=== PATIENT | female | born 1950 | race Caucasian/White ===

== ENCOUNTER 2016-04-09 10:53 | Outpatient (CLI) | payer MEDICARE | END 2016-04-09 10:54 | disposition home or self-care (01) | LOC: MADLAB 10:53 | PROVIDERS: ATTEND Urology | DX: N13.5 Crossing vessel and stricture of ureter without hydronephrosis (principal); N39.0 Urinary tract infection, site not specified | CPT/HCPCS: 36415; 87086 ==

== ENCOUNTER 2016-04-15 11:04 | Outpatient (CLI) | payer MEDICARE ==
--- NOTE | 2016-04-15 12:46 | RAD ---
THREE VIEWS OF THE SACRUM AND COCCYX: INDICATION: Fall with pain. FINDINGS: There is a minimally displaced comminuted fracture involving the coccyx. No additional fracture is evident. SI joints are normal-appearing. There is partial visualization of the distal left uretera l calculus. IMPRESSION: Minimally displaced mildly comminuted coccygeal fracture. POS: [facility]
--- NOTE | 2016-04-15 12:47 | RAD ---
TWO VIEWS OF THE LUMBAR SPINE: INDICATION: Fall with back pain. FINDINGS: There is a left ureteral stent in place. Cholecystectomy clips are seen within the right upper quad rant. No acute fracture or subluxation is evident. There is mild spondylosis of the lumbar spine. IMPRESSION: No acute osseous abnormality of the lumbar spine. POS: [facility]
== END 2016-04-15 11:05 | disposition home or self-care (01) ==
LOC: MADRAD 11:04
PROVIDERS: ATTEND Family Medicine
DX: M54.9 Dorsalgia, unspecified (principal)
CPT/HCPCS: 72100; 72220

== ENCOUNTER 2016-06-11 16:18 | Outpatient (CLI) | payer MEDICARE | END 2016-06-11 16:19 | disposition home or self-care (01) | LOC: MADLAB 16:18 | PROVIDERS: ATTEND Urology | DX: N39.0 Urinary tract infection, site not specified (principal) | CPT/HCPCS: 87086 ==

== ENCOUNTER 2016-06-23 12:40 | Outpatient (CLI) | payer MEDICARE | END 2016-06-23 12:41 | disposition home or self-care (01) | LOC: MADLAB 12:40 | PROVIDERS: ATTEND Urology | DX: N39.0 Urinary tract infection, site not specified (principal) | CPT/HCPCS: 36415; 87086 ==

== ENCOUNTER 2016-08-11 13:09 | Outpatient (CLI) | payer MEDICARE | END 2016-08-11 13:10 | disposition home or self-care (01) | LOC: MADLAB 13:09 | PROVIDERS: ATTEND Urology | DX: R30.0 Dysuria (principal) | CPT/HCPCS: 87086 ==

== ENCOUNTER 2016-10-07 14:32 | Outpatient (CLI) | payer MEDICARE | END 2016-10-07 14:33 | disposition home or self-care (01) | LOC: MADLAB 14:32 | PROVIDERS: ATTEND Urology | DX: N39.0 Urinary tract infection, site not specified (principal) | CPT/HCPCS: 36415; 87077; 87086; 87186 ==

== ENCOUNTER 2016-11-08 13:45 | Outpatient (CLI) | payer MEDICARE | END 2016-11-08 13:46 | disposition home or self-care (01) | LOC: MADLAB 13:45 | PROVIDERS: ATTEND Urology | DX: R30.0 Dysuria (principal) | CPT/HCPCS: 87077; 87086; 87186 ==

== ENCOUNTER 2016-11-17 13:55 | Outpatient (CLI) | payer MEDICARE | END 2016-11-17 13:56 | disposition home or self-care (01) | LOC: MADLAB 13:55 | PROVIDERS: ATTEND Urology | DX: N39.0 Urinary tract infection, site not specified (principal) | CPT/HCPCS: 36415; 87086 ==

== ENCOUNTER 2017-04-05 16:37 | Emergency (ER) | payer MEDICARE ==
[~2017-04-05 16:37] MED LIST: Sodium Chloride 0.9% 1,000 ML BAG ONE
[2017-04-05 17:19] LABS: Bacteria/HPF 4+ HPF (None Seen); Bilirubin Small (Negative); Blood, Urine Large (Negative); Clarity Cloudy (Clear); Glucose, Urine (Dipstick) Negative (Negative); Leukocyte Large (Negative); Nitrite Negative (Negative); Protein, Urine (Dipstick) 100 mg/dL (Neg-Trace); RBC/HPF GREATER THAN 50-TNTC HPF (0-3); Urobilinogen 0.2 mg/dL (0.2-1.0); pH, Urine 5.5 (5.0-9.0)
[2017-04-05 17:52] LABS: #Basophils 0.1 thou/uL (0.0-0.2); #Eosinphils 0.4 thou/uL (0.0-0.7); #Lymphocytes 2.9 thou/uL (1.20-3.40); #Monocytes 0.5 thou/uL (0.11-0.59); #Neutrophils 2.4 thou/uL (1.40-6.50); %Basophils 1.9 % (0.0-1.0); %Eosinophils 6.1 % (0.0-10.0); %Monocytes 7.7 % (0.0-10.0); %Neutrophils 38.4 % (42.0-75.0); Hemoglobin 12.9 g/dL (12.0-16.0); Mean Corpuscular HGB CONC 32.8 g/dL (32.0-36.0); Mean Corpuscular Hemoglobin 29.6 pg (27.0-31.0); Mean Corpuscular Volume 90.2 fl (81.0-99.0); Mean Platelet Volume 6.8 fL (7.4-10.4); Platelet Count 307 thou/uL (130-400); RBC Distribution Width 13.5 % (11.5-14.5); Red Blood Cell (RBC) Count 4.36 mill/uL (4.20-5.40); White Blood Cell (WBC) Count 6.3 thou/uL (4.8-10.8)
[2017-04-05] MEDS ORDERED: Morphine 4 MG/ML VIAL ONE (18:00)
[2017-04-05 18:06] LABS: ALT (SGPT) 18 U/L (8-55); AST (SGOT) 42 U/L (5-34); Albumin 3.1 g/dL (3.4-4.8); Alkaline Phosphatase 94 U/L (40-150); Anion Gap 19 mmol/L (10-20); BUN (Urea Nitrogen) 6 mg/dL (9.8-20.1); Bilirubin, Total 0.4 mg/dL (0.2-1.2); Calc. Creatinine Clearance 0 mL/min (70-130); Calcium 8.7 mg/dL (7.8-10.44); Carbon Dioxide 20 mmol/L (23-31); Chloride 100 mmol/L (98-107); Estimated GFR-MDRD 60; Globulin 3.8 g/dL (2.4-3.5); Glucose 70 mg/dL (80-115); Potassium 3.9 mmol/L (3.5-5.1); Protein, Total 6.9 g/dL (6.0-8.3); Sodium 135 mmol/L (136-145)
[2017-04-05] MEDS ORDERED: Levofloxacin 500 mg/D5W 100 ml Premix Bag ONE (18:12)
[2017-04-05] MEDS ORDERED: Ondansetron HCl/PF 4 MG/2 ML Vial ONE (18:12)
[2017-04-05] MEDS ORDERED: Lorazepam 2 MG/ML VIAL ONE (20:58)
== END 2017-04-05 21:05 | disposition short-term general hospital (02) ==
LOC: MADERS 16:37
DX: N39.0 Urinary tract infection, site not specified (principal); F17.210 Nicotine dependence, cigarettes, uncomplicated; Z85.841 Personal history of malignant neoplasm of brain; Z85.05 Personal history of malignant neoplasm of liver
CPT/HCPCS: 80053; 81003; 81015; 83605; 85025; 87040; 87086; 96361; 96365; 96375; J1956; J2060; J2270; J2405; J7050

== ENCOUNTER 2017-05-04 15:28 | Outpatient (CLI) | payer MEDICARE | END 2017-05-04 15:29 | disposition home or self-care (01) | LOC: MADLAB 15:28 | PROVIDERS: ATTEND Urology | DX: N39.0 Urinary tract infection, site not specified (principal) | CPT/HCPCS: 87086 ==

== ENCOUNTER 2017-08-30 11:55 | Outpatient (CLI) | payer MEDICARE ==
--- NOTE | 2017-08-30 14:01 | RAD ---
KUB: Date: 08-30-17 Comparison: None. History: Dysuria and bilateral flank pain. FINDINGS: There are bilateral double J stents present. Supine imaging limits assessment for free intraperitonea l air and small bowel obstruction. Clips in right upper quadrant suggest prior cholecystectomy. Bowel gas pattern appears nonobstructed. Calcifications in the pelvis suggest phleboliths. IMPRESSION: Bilateral double J ureteral stents are present. The bowel gas pattern appears nonobstructed. POS: [facility]
== END 2017-08-30 11:56 | disposition home or self-care (01) ==
LOC: MADLAB 11:55
PROVIDERS: ATTEND Urology
DX: N39.0 Urinary tract infection, site not specified (principal)
CPT/HCPCS: 74018; 87086

== ENCOUNTER 2018-01-28 13:30 | Emergency (ER) | payer MEDICARE ==
[2018-01-28] MEDS ORDERED: Morphine 4 MG/ML VIAL ONE ×2 (14:22→16:19)
[2018-01-28 14:32] LABS: PTT 43.9 SEC (22.9-36.1)
[2018-01-28 14:36] LABS: INR-International Normal Ratio 1.1; Prothrombin Time 13.8 SEC (12.0-14.7)
[2018-01-28] MEDS ORDERED: Ondansetron PF 4 MG/2 ML Vial ONE (14:38)
[2018-01-28 14:40] LABS: Bilirubin Negative (Negative); Blood, Urine Moderate (Negative); Clarity Cloudy (Clear); Glucose, Urine (Dipstick) Negative (Negative); Leukocyte Large (Negative); Nitrite Negative (Negative); Protein, Urine (Dipstick) 30 mg/dL (Neg-Trace); Specific Gravity, Urine 1.015 (1.005-1.030); Urobilinogen 0.2 mg/dL (0.2-1.0)
[2018-01-28 14:41] LABS: ALT (SGPT) 14 U/L (8-55); AST (SGOT) 14 U/L (5-34); Albumin 3.6 g/dL (3.4-4.8); Alkaline Phosphatase 125 U/L (40-150); Anion Gap 15 mmol/L (10-20); BUN (Urea Nitrogen) 18 mg/dL (9.8-20.1); Bilirubin, Total 0.4 mg/dL (0.2-1.2); Calc. Creatinine Clearance 0 mL/min (70-130); Calcium 8.9 mg/dL (7.8-10.44); Carbon Dioxide 24 mmol/L (23-31); Chloride 103 mmol/L (98-107); Estimated GFR-MDRD 46; Globulin 3.8 g/dL (2.4-3.5); Glucose 83 mg/dL (80-115); Potassium 4.5 mmol/L (3.5-5.1); Protein, Total 7.4 g/dL (6.0-8.3); Sodium 137 mmol/L (136-145)
[2018-01-28 14:43] LABS: CKMB 0.7 ng/mL (0-6.6); Troponin I Less than 0.010 ng/mL (< 0.028)
[2018-01-28 14:46] LABS: Bacteria/HPF 1+ HPF (None Seen); RBC/HPF 21-50 HPF (0-3); WBC/HPF 21-50 HPF (0-3)
[2018-01-28] MEDS ORDERED: Ketorolac Tromethamine 30 MG/ML VIAL ONE (16:19)
[2018-01-28] MEDS ORDERED: cefTRIAXone\\ROCEPHIN 1 GM VIAL ONE (16:19)
[2018-01-28] MEDS ORDERED: Azithromycin 500 MG VIAL ONE (16:19)
--- NOTE | 2018-01-28 17:15 | CT ---
CT ANGIOGRAM CHEST WITH 3D RENDERIN01/28/18 HISTORY: 67-year-old female with history of chest pain. There is parenchymal density in the right middle lobe, evidence for right middle lobe pneumonia. Ther e is some small right hilar lymph nodes. No convincing CT evidence for acute pulmonary embolism. Athe rosclerotic calcification and atherosclerotic plaques are noted including the arch of the aorta as we ll as the origin of the left subclavian artery and the descending aorta without significant stenosis. Small hiatal hernia. IMPRESSION: Evidence for right middle lobe pneumonia. No convincing CT evidence for acute pulmonary embolism. Mul tiple atherosclerotic calcific plaques. POS: [facility]
--- NOTE | 2018-01-28 18:00 | CT ---
ABDOMEN AND PELVIC CT SCAN WITH IV CONTRAST: 01/28/18 HISTORY: 67-year-old female with history of left flank pain, history of metastatic melanoma, bilateral uretera l stents. The visualized lung bases are clear. Small hiatal hernia. Status post cholecystectomy with some dilat ation of the common bile duct but no significant peripheral intrahepatic ductal dilatation. The pancr eas, spleen, adrenal glands are unremarkable. There are two focal areas of dilatation of the abdomina l aorta. One measuring approximately 2.2 cm with a focal narrowed abdominal aorta measuring approxima tely 0.9 cm followed by another focal area of aneurysmal dilatation up to 2.4 cm with prominent ather osclerotic calcific plaques of the aorta as well as iliac arteries. There is bilateral renal contrast excretion which is quite dense since this study followed the CT angiogram of the chest. No evidence for acute obstruction. IMPRESSION: Small hiatal hernia. Bilateral ureteral stents without evidence for obstruction. 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 No evid ence for other significant acute process in the abdomen or pelvis. POS: [facility]
== END 2018-01-28 18:00 | disposition home or self-care (01) ==
LOC: MADERS 13:30
DX: J18.9 Pneumonia, unspecified organism (principal); M25.552 Pain in left hip; F17.210 Nicotine dependence, cigarettes, uncomplicated; Z79.899 Other long term (current) drug therapy
CPT/HCPCS: 71275; 74177; 80053; 81003; 81015; 82553; 84484; 85610; 85730; 93005; 96365; 96375; 96376; J0456; J0696; J1885; J2270; J2405

== ENCOUNTER 2018-04-20 08:20 | Emergency (ER) | payer MEDICARE ==
[2018-04-20] MEDS ORDERED: HYDROcodone/Acetaminophen 10/325 mg Tablet ONE (09:49)
[2018-04-20] MEDS ORDERED: Ketorolac Tromethamine 30 MG/ML VIAL ONE (09:49)
--- NOTE | 2018-04-20 09:50 | RAD ---
RIGHT RIBS GREATER/EQUAL TO TWO VIEW PA CHEST RADIOGRAPH: History: Injury. Bruise. Comparison: CT chest 01/2018. FINDINGS: There has been interval resolution of the right middle lobe pneumonia. Lungs are without confluent ai rspace consolidation, pneumothorax or effusion. No acute displaced rib fracture. IMPRESSION: No acute displaced rib fracture. POS: [facility]
== END 2018-04-20 10:22 | disposition home or self-care (01) ==
LOC: MADERS 08:20
DX: S20.211A Contusion of right front wall of thorax, initial encounter (principal); X58.XXXA Exposure to other specified factors, initial encounter
CPT/HCPCS: 96372; J1885

== ENCOUNTER 2018-04-23 10:10 | Emergency (ER) | payer MEDICARE ==
[2018-04-23] MEDS ORDERED: Ketorolac Tromethamine 60 MG/2 ML VIAL ONE (10:55)
--- NOTE | 2018-04-23 12:32 | CT ---
NONCONTRAST CT THORAX: Date: 08/21/18 HISTORY: Right-sided rib injury. COMPARISON: CTA chest dated 01/28/18. FINDINGS: Lack of intravenous contrast limits sensitivity for evaluation of the mediastinal structures and vasc ulature. Vascular calcifications are seen in the coronary arteries, as well as involving the thoracic aorta. N o definite enlarged lymph nodes are seen on this nonenhanced CT scan of the chest. The previously noted area of consolidation in the medial aspect of the right upper lobe has resolved with mild persistent linear densities in this region which may be related to residual scarring within the medial right upper lobe. There is a tiny nodular density measuring approximately 4.0 mm within the right middle lobe, too smal l to accurately assess. There is also a small, approximately 4.0 mm, pulmonary nodule posterior aspec t right lower lobe. This was not definitely visualized on the prior study, but due to motion, this wa s not well visualized. This is also too small to accurately assess. There is a stable subpleural nodu lar density at the left lung base that measures approximately 3.0 mm. There is also an adjacent sligh tly smaller subpleural nodular density as well. No additional discrete pulmonary nodular mass is appr eciated within the lungs bilaterally. No pleural effusion or consolidation is present. Post cholecystectomy changes are present within the upper abdomen. There is a small hiatal hernia. There are fractures involving the lateral right 7th and 8th ribs which are not significantly displace d. No definite additional rib fracture is seen. There is mild deformity of the left anterior abdominal wall with absence of a portion of the adipose layer likely related to prior postoperative change. IMPRESSION: 1. Nondisplaced right lateral 7th and 8th rib fractures. There is no evidence of a pneumothorax or p leural effusion. 2. A few tiny, 4.0 mm, pulmonary nodules bilaterally, which are difficult to accurately assess due t o very small size. POS: [facility]
== END 2018-04-23 11:45 | disposition home or self-care (01) ==
LOC: MADERS 10:10
DX: S22.41XA Multiple fractures of ribs, right side, initial encounter for closed fracture (principal); Z71.6 Tobacco abuse counseling; F17.210 Nicotine dependence, cigarettes, uncomplicated; Z79.899 Other long term (current) drug therapy; X58.XXXA Exposure to other specified factors, initial encounter
CPT/HCPCS: 71250; 96372; 99406; J1885

== ENCOUNTER 2018-06-14 12:20 | Emergency (ER) | payer MEDICARE ==
[2018-06-14 13:09] LABS: #Basophils 0.1 thou/uL (0.0-0.2); #Eosinphils 0.2 thou/uL (0.0-0.7); #Lymphocytes 1.5 thou/uL (1.20-3.40); #Monocytes 0.5 thou/uL (0.11-0.59); %Basophils 0.8 % (0.0-1.0); %Eosinophils 1.9 % (0.0-10.0); %Lymphocytes 14.5 % (21.0-51.0); %Monocytes 4.9 % (0.0-10.0); %Neutrophils 77.9 % (42.0-75.0); Hemoglobin 12.9 g/dL (12.0-16.0); Mean Corpuscular HGB CONC 31.6 g/dL (32.0-36.0); Mean Corpuscular Hemoglobin 29.1 pg (27.0-31.0); Mean Corpuscular Volume 92.2 fL (78.0-98.0); Mean Platelet Volume 5.3 fL (7.4-10.4); Platelet Count 322 thou/uL (130-400); RBC Distribution Width 14.9 % (11.5-14.5); Red Blood Cell (RBC) Count 4.44 mill/uL (4.20-5.40); White Blood Cell (WBC) Count 10.2 thou/uL (4.8-10.8)
[2018-06-14 13:14] LABS: Bilirubin Negative (Negative); Blood, Urine Moderate (Negative); Clarity Clear (Clear); Glucose, Urine (Dipstick) Negative (Negative); Leukocyte Large (Negative); Nitrite Negative (Negative); Protein, Urine (Dipstick) Negative (Neg-Trace); Urobilinogen 0.2 mg/dL (0.2-1.0)
[2018-06-14 13:23] LABS: Bacteria/HPF Rare-Few HPF (None Seen)
[2018-06-14 13:27] LABS: THC/Cannabinoid Screen Not Detected (NotDetected)
[2018-06-14 13:28] LABS: Amphetamine Not Detected (NotDetected); Barbiturates Screen Not Detected (NotDetected); Benzodiazepine Screen Not Detected (NotDetected); Cocaine Metabolite Screen Not Detected (NotDetected); Medtox Control Line Valid? VALID (VALID); Methadone Not Detected (NotDetected); Methamphetamine Not Detected (NotDetected); Opiate Screen Detected (NotDetected); Oxycodone Screen Not Detected (NotDetected); Phencyclidine (PCP) Not Detected (NotDetected); Tricyclic Screen Detected (NotDetected)
[2018-06-14 13:30] LABS: ALT (SGPT) 10 U/L (8-55); AST (SGOT) 15 U/L (5-34); Acetaminophen Less than 6.0 mcg/mL (10.0-30.0); Albumin 3.6 g/dL (3.4-4.8); Alcohol Less than 10 mg/dL (Less than 10); Alkaline Phosphatase 126 U/L (40-150); Anion Gap 12 mmol/L (10-20); BUN (Urea Nitrogen) 23 mg/dL (9.8-20.1); Bilirubin, Total Less than 0.2 mg/dL (0.2-1.2); Calc. Creatinine Clearance 0 mL/min (70-130); Calcium 8.5 mg/dL (7.8-10.44); Carbon Dioxide 25 mmol/L (23-31); Chloride 105 mmol/L (98-107); Estimated GFR-MDRD 53; Globulin 3.2 g/dL (2.4-3.5); Glucose 86 mg/dL (80-115); Potassium 4.6 mmol/L (3.5-5.1); Protein, Total 6.8 g/dL (6.0-8.3); Salicylate Less than 8.0 mg/dL (15.0-30.0); Sodium 137 mmol/L (136-145)
== END 2018-06-14 13:37 | disposition left against medical advice (07) ==
LOC: MADERS 12:20
DX: Z53.21 Procedure and treatment not carried out due to patient leaving prior to being seen by health care provider (principal); F17.210 Nicotine dependence, cigarettes, uncomplicated
CPT/HCPCS: 36415; 80053; 80306; 80307; 81003; 81015; 85025; 87086; 94760

== ENCOUNTER 2018-08-23 19:50 | Emergency (ER) | payer MEDICARE ==
[2018-08-23] MEDS ORDERED: Fentanyl 100 MCG/2 ML VIAL ONE (20:19)
[2018-08-23] MEDS ORDERED: Sodium Chloride 0.9% 1,000 ML ONE (20:19)
[2018-08-23] MEDS ORDERED: Acetaminophen 500 MG TAB ONE (20:19)
[2018-08-23 20:26] LABS: Bilirubin Negative (Negative); Blood, Urine Large (Negative); Glucose, Urine (Dipstick) Negative (Negative); Leukocyte Moderate (Negative); Nitrite Negative (Negative); Protein, Urine (Dipstick) 100 mg/dL (Neg-Trace); Specific Gravity, Urine 1.015 (1.005-1.030); Urobilinogen 0.2 mg/dL (0.2-1.0); pH, Urine 5.5 (5.0-9.0)
[2018-08-23 20:27] LABS: Clarity Cloudy (Clear)
[2018-08-23 20:28] LABS: Bacteria/HPF 1+ HPF (None Seen); RBC/HPF GREATER THAN 50-TNTC HPF (0-3); Squamous Epithelial 0-3 HPF (0-3)
[2018-08-24 09:50] LABS: Hemoglobin 12.6 g/dL (12.0-16.0); Mean Corpuscular HGB CONC 32.8 g/dL (32.0-36.0); Mean Corpuscular Hemoglobin 29.2 pg (27.0-31.0); Mean Platelet Volume 5.2 fL (7.4-10.4); Platelet Count 279 thou/uL (130-400); RBC Distribution Width 14.6 % (11.5-14.5); Red Blood Cell (RBC) Count 4.32 mill/uL (4.20-5.40); White Blood Cell (WBC) Count 12.3 thou/uL (4.8-10.8)
[2018-08-24 09:51] LABS: #Basophils 0.1 thou/uL (0.0-0.2); #Eosinphils 0.3 thou/uL (0.0-0.7); #Lymphocytes 2.3 thou/uL (1.20-3.40); #Monocytes 0.9 thou/uL (0.11-0.59); #Neutrophils 8.7 thou/uL (1.40-6.50); %Basophils 0.9 % (0.0-1.0); %Eosinophils 2.5 % (0.0-10.0); %Lymphocytes 18.5 % (21.0-51.0); %Monocytes 7.1 % (0.0-10.0); %Neutrophils 71.1 % (42.0-75.0)
[2018-08-24 09:57] LABS: ALT (SGPT) 12 U/L (8-55); AST (SGOT) 18 U/L (5-34); Albumin 3.4 g/dL (3.4-4.8); Alkaline Phosphatase 95 U/L (40-150); Anion Gap 16 mmol/L (10-20); BUN (Urea Nitrogen) 24 mg/dL (9.8-20.1); Bilirubin, Total 0.4 mg/dL (0.2-1.2); Calc. Creatinine Clearance 0 mL/min (70-130); Calcium 8.8 mg/dL (7.8-10.44); Carbon Dioxide 25 mmol/L (23-31); Chloride 102 mmol/L (98-107); Estimated GFR-MDRD 37; Globulin 3.7 g/dL (2.4-3.5); Glucose 83 mg/dL (80-115); Potassium 4.2 mmol/L (3.5-5.1); Protein, Total 7.1 g/dL (5.8-8.1); Sodium 139 mmol/L (136-145)
== END 2018-08-23 23:15 | disposition home or self-care (01) ==
LOC: MADERS 19:50
DX: N10 Acute pyelonephritis (principal); F17.210 Nicotine dependence, cigarettes, uncomplicated
CPT/HCPCS: 80053; 81003; 81015; 83605; 84484; 85025; 87040; 87086; J1956; J3010; J7050

== ENCOUNTER 2018-10-22 20:45 | Emergency (ER) | payer MEDICARE ==
[2018-10-22 21:09] LABS: Bilirubin Negative (Negative); Blood, Urine Moderate (Negative); Clarity Cloudy (Clear); Glucose, Urine (Dipstick) Negative (Negative); Leukocyte Large (Negative); Nitrite Negative (Negative); Protein, Urine (Dipstick) 30 mg/dL (Neg-Trace); Urobilinogen 0.2 mg/dL (Less than 2)
[2018-10-22 21:13] LABS: RBC/HPF 21-50 HPF (0-3); WBC/HPF Greater Than 50 HPF (0-3)
[2018-10-22] MEDS ORDERED: cefTRIAXone\\ROCEPHIN 1 GM VIAL ONE (21:13)
[2018-10-22] MEDS ORDERED: Lidocaine 2% 20 ml MDV ONE (21:13)
[2018-10-22 21:14] LABS: Bacteria/HPF 2+ HPF (None Seen)
[2018-10-22] MEDS ORDERED: Acetaminophen/Codeine 30-300mg Tablet ONE (21:17)
== END 2018-10-22 21:38 | disposition home or self-care (01) ==
LOC: MADERS 20:45
DX: N39.0 Urinary tract infection, site not specified (principal); F17.210 Nicotine dependence, cigarettes, uncomplicated
CPT/HCPCS: 81003; 81015; 87086; 96372; 99283; J0696; J2001

== ENCOUNTER 2019-01-08 10:10 | Emergency (ER) | payer MEDICARE ==
--- NOTE | 2019-01-08 11:14 | RAD ---
LEFT ANKLE 3 VIEWS: Date: 01/08/19 HISTORY: Fall. FINDINGS: There is soft tissue swelling laterally and on the dorsum of the foot. Tiny bony density at the nidhi avicular joint could indicate a subtle avulsive injury. In addition on the AP projection, small bony density on the lateral side of the talus which would suggest injury to the distal attachment of the a nterior talofibular ligament. IMPRESSION: Findings suspicious for a small avulsion fracture of the dorsal capsule near the talonavicular joint level and probable avulsive injury of the distal attachment of the ATFL at the level of the talus. POS: [facility]
--- NOTE | 2019-01-08 11:15 | RAD ---
LEFT FOOT 3 VIEWS: Date: 01/08/19 HISTORY: Fall earlier. FINDINGS: Soft tissue swelling on the dorsum of the foot is noted. Once again, a faint bony density is seen shasta ng the talonavicular joint, which would indicate possibly a dorsal capsular injury. A small bony dens ity near the calcaneal cuboid joint is probably related to a small ossicle related to the peroneus te ndon. IMPRESSION: Soft tissue swelling mainly on the dorsum of the foot. Please refer to the ankle report concerning de scription of these findings. POS: [facility]
[2019-01-08] MEDS ORDERED: Ibuprofen 600 MG TAB ONE (11:21)
== END 2019-01-08 11:45 | disposition home or self-care (01) ==
LOC: MADERS 10:10
DX: S82.892A Other fracture of left lower leg, initial encounter for closed fracture (principal); F17.210 Nicotine dependence, cigarettes, uncomplicated; W18.30XA Fall on same level, unspecified, initial encounter

== ENCOUNTER 2019-01-15 12:06 | Emergency (ER) | payer MEDICARE ==
[2019-01-15] MEDS ORDERED: Morphine 4 MG/ML VIAL ONE ×2 (12:35→14:27)
[2019-01-15] MEDS ORDERED: Aspirin Chewable 81 MG TAB ONE (12:35)
--- NOTE | 2019-01-15 12:52 | RAD ---
CHEST PA AND LATERAL: HISTORY: Chest pain . COMPARISON: 04/28/2015. FINDINGS: Heart: Normal cardiac silhouette. Aorta: Atherosclerosis. Pulmonary vessels: Prominent. Costophrenic angles: Costophrenic angles are clear. Lungs: Hyperinflation. There do appear to be chronic changes. Superimposed interstitial edema and/or infiltrate cannot be excluded. Pneumothorax: No pneumothorax. Osseous structures: No osseous abnormalities. IMPRESSION: 1. Atherosclerosis. 2. Hyperinflation with what are probably chronic changes of the lung parenchyma. Superimposed edema a nd/or infiltrate cannot be excluded. Continued surveillance is recommended. Transcribed Date/Time: 01/15/2019 12:54 PM
[2019-01-15 13:23] LABS: #Basophils 0.1 thou/uL (0.0-0.2); #Eosinphils 0.4 thou/uL (0.0-0.7); #Lymphocytes 2.1 thou/uL (1.20-3.40); #Monocytes 0.7 thou/uL (0.11-0.59); #Neutrophils 11.1 thou/uL (1.40-6.50); %Basophils 0.9 % (0.0-1.0); %Eosinophils 2.5 % (0.0-10.0); %Lymphocytes 14.4 % (21.0-51.0); %Monocytes 5.2 % (0.0-10.0); %Neutrophils 77.1 % (42.0-75.0); Hemoglobin 11.5 g/dL (12.0-16.0); Mean Corpuscular HGB CONC 29.7 g/dL (32.0-36.0); Mean Corpuscular Volume 94.2 fL (78.0-98.0); Mean Platelet Volume 5.4 fL (7.4-10.4); Platelet Count 354 thou/uL (130-400); RBC Distribution Width 15.6 % (11.5-14.5); White Blood Cell (WBC) Count 14.4 thou/uL (4.8-10.8)
[2019-01-15 14:15] LABS: ALT (SGPT) 11 U/L (8-55); AST (SGOT) 16 U/L (5-34); Albumin 3.4 g/dL (3.4-4.8); Alkaline Phosphatase 95 U/L (40-110); Anion Gap 15 mmol/L (10-20); BUN (Urea Nitrogen) 35 mg/dL (9.8-20.1); Bilirubin, Total 0.3 mg/dL (0.2-1.2); Calc. Creatinine Clearance 0 mL/min (70-130); Carbon Dioxide 24 mmol/L (23-31); Chloride 106 mmol/L (98-107); Estimated GFR-MDRD 35; Globulin 3.3 g/dL (2.4-3.5); Glucose 77 mg/dL (80-115); Potassium 4.7 mmol/L (3.5-5.1); Protein, Total 6.7 g/dL (6.0-8.3); Sodium 140 mmol/L (136-145)
== END 2019-01-15 17:25 | disposition short-term general hospital (02) ==
LOC: MADERS 12:06
DX: R07.9 Chest pain, unspecified (principal); F17.210 Nicotine dependence, cigarettes, uncomplicated; Z79.899 Other long term (current) drug therapy
CPT/HCPCS: 71046; 80053; 83880; 84484; 85025; 93005; 94760; 96374; 96376; J2270

== ENCOUNTER 2019-02-25 14:20 | Emergency (ER) | payer MEDICARE ==
[2019-02-25 14:52] LABS: #Basophils 0.2 thou/uL (0.0-0.2); #Eosinphils 0.3 thou/uL (0.0-0.7); #Lymphocytes 1.3 thou/uL (1.20-3.40); #Monocytes 0.6 thou/uL (0.11-0.59); #Neutrophils 8.8 thou/uL (1.40-6.50); %Basophils 1.4 % (0.0-1.0); %Eosinophils 2.7 % (0.0-10.0); %Lymphocytes 11.3 % (21.0-51.0); %Monocytes 5.4 % (0.0-10.0); %Neutrophils 79.2 % (42.0-75.0); Hemoglobin 12.8 g/dL (12.0-16.0); Mean Corpuscular HGB CONC 29.9 g/dL (32.0-36.0); Mean Corpuscular Hemoglobin 28.4 pg (27.0-31.0); Mean Corpuscular Volume 94.8 fL (78.0-98.0); Mean Platelet Volume 7.2 fL (7.4-10.4); Platelet Count 303 thou/uL (130-400); RBC Distribution Width 15.3 % (11.5-14.5); Red Blood Cell (RBC) Count 4.49 mill/uL (4.20-5.40); White Blood Cell (WBC) Count 11.1 thou/uL (4.8-10.8)
[2019-02-25 15:07] LABS: ALT (SGPT) 24 U/L (8-55); AST (SGOT) 25 U/L (5-34); Albumin 3.9 g/dL (3.4-4.8); Alkaline Phosphatase 116 U/L (40-110); Anion Gap 15 mmol/L (10-20); BUN (Urea Nitrogen) 26 mg/dL (9.8-20.1); Bilirubin, Total 0.5 mg/dL (0.2-1.2); CK (CPK) 36 U/L (29-168); Calc. Creatinine Clearance 0 mL/min (70-130); Calcium 8.9 mg/dL (7.8-10.44); Carbon Dioxide 23 mmol/L (23-31); Chloride 105 mmol/L (98-107); Estimated GFR-MDRD 27; Globulin 3.1 g/dL (2.4-3.5); Glucose 90 mg/dL (80-115); Sodium 138 mmol/L (136-145)
--- NOTE | 2019-02-25 15:12 | RAD ---
EXAM: Portable chest PROVIDED CLINICAL HISTORY: Syncope COMPARISON: 01/15/2019 FINDINGS: Cardiac and mediastinal silhouette is within normal limits. No focal consolidation, pleural fluid or pneumothorax evident. IMPRESSION: No evidence for an acute cardiopulmonary process.
--- NOTE | 2019-02-25 15:14 | CT ---
Exam: CT brain PROVIDED CLINICAL HISTORY: Syncope, fall, altered mental status COMPARISON: None FINDINGS: The ventricular system is normal in size and morphology. No evidence for intracranial hemorrhage or mass effect. The extracranial soft tissues and osseous structures demonstrate no evidence for an acute abnormality. IMPRESSION: No evidence for intracranial hemorrhage or mass effect.
[2019-02-25] MEDS ORDERED: Aspirin Chewable 81 MG TAB ONE (16:08)
[2019-02-25] MEDS ORDERED: Acetaminophen 500 MG TAB ONE (16:08)
[2019-02-25 17:12] LABS: Acetaminophen Less than 6.0 mcg/mL (10.0-30.0); Alcohol Less than 10 mg/dL (Less than 10); Salicylate Less than 8.0 mg/dL (15.0-30.0)
[2019-02-25] MEDS ORDERED: methylPREDNISolone Sod Succ/PF 125 MG/2 ML VIAL ONE (17:33)
[2019-02-25 17:37] LABS: Bilirubin Negative (Negative); Blood, Urine Small (Negative); Clarity Hazy (Clear); Glucose, Urine (Dipstick) Negative (Negative); Leukocyte Large (Negative); Nitrite Negative (Negative); Protein, Urine (Dipstick) 30 mg/dL (Neg-Trace); Urobilinogen 0.2 mg/dL (Less than 2)
[2019-02-25 17:45] LABS: Bacteria/HPF 1+ HPF (None Seen); WBC/HPF Greater than 50 HPF (0-3)
[2019-02-25 17:47] LABS: Opiate Screen Detected (NotDetected)
[2019-02-25 17:48] LABS: Amphetamine Not Detected (NotDetected); Barbiturates Screen Not Detected (NotDetected); Benzodiazepine Screen Not Detected (NotDetected); Cocaine Metabolite Screen Not Detected (NotDetected); Medtox Control Line Valid? VALID (VALID); Methadone Not Detected (NotDetected); Methamphetamine Not Detected (NotDetected); Oxycodone Screen Not Detected (NotDetected); Phencyclidine (PCP) Not Detected (NotDetected); THC/Cannabinoid Screen Not Detected (NotDetected); Tricyclic Screen Not Detected (NotDetected)
[2019-02-25] MEDS ORDERED: Ondansetron PF 4 MG/2 ML Vial ONE ×2 (17:54→17:57)
[2019-02-25] MEDS ORDERED: Sodium Chloride 0.9% 100 ML ONE (17:54)
[2019-02-25] MEDS ORDERED: cefTRIAXone\\ROCEPHIN 1 GM VIAL ONE (17:55)
== END 2019-02-25 18:59 | disposition short-term general hospital (02) ==
LOC: MADERS 14:20
DX: R07.81 Pleurodynia (principal); R55 Syncope and collapse; R56.9 Unspecified convulsions; I25.10 Atherosclerotic heart disease of native coronary artery without angina pectoris; E27.40 Unspecified adrenocortical insufficiency; I10 Essential (primary) hypertension; F17.210 Nicotine dependence, cigarettes, uncomplicated; Z79.899 Other long term (current) drug therapy; Z79.891 Long term (current) use of opiate analgesic; Z95.5 Presence of coronary angioplasty implant and graft; Z79.82 Long term (current) use of aspirin
CPT/HCPCS: 36416; 51701; 70450; 71045; 80053; 80306; 80307; 81003; 81015; 82550; 83605; 84484; 85025; 87040; 87086; 87149; 93005; 96365; 96375; A4353; J0696; J2405; J2930; J3490

== ENCOUNTER 2020-06-12 02:13 | Emergency (ER) | payer MEDICARE | END 2020-06-12 02:50 | disposition home or self-care (01) | LOC: MADERS 02:13 | DX: S00.212A Abrasion of left eyelid and periocular area, initial encounter (principal); S00.31XA Abrasion of nose, initial encounter; F17.210 Nicotine dependence, cigarettes, uncomplicated; W50.4XXA Accidental scratch by another person, initial encounter | CPT/HCPCS: 99283 ==

== ENCOUNTER 2020-09-08 15:03 | Emergency (ER) | payer MEDICARE ==
[2020-09-08] MEDS ORDERED: HYDROcodone/Acetaminophen 10/325 mg Tablet ONE (15:40)
[2020-09-08] MEDS ORDERED: Sodium Chloride 0.9% 1,000 ML ONE (15:40)
[2020-09-08 15:52] LABS: #Basophils 0.1 thou/uL (0.0-0.2); #Eosinphils 0.2 thou/uL (0.0-0.7); #Lymphocytes 1.2 thou/uL (1.20-3.40); #Monocytes 0.7 thou/uL (0.11-0.59); #Neutrophils 10.8 thou/uL (1.40-6.50); %Basophils 1.1 % (0.0-1.0); %Eosinophils 1.2 % (0.0-10.0); %Monocytes 5.4 % (0.0-10.0); %Neutrophils 83.2 % (42.0-75.0); Hemoglobin 10.9 g/dL (12.0-16.0); Mean Corpuscular HGB CONC 30.3 g/dL (32.0-36.0); Mean Corpuscular Hemoglobin 27.3 pg (27.0-31.0); Mean Corpuscular Volume 90.2 fL (78.0-98.0); Mean Platelet Volume 7.1 fL (7.4-10.4); Platelet Count 320 thou/uL (130-400); RBC Distribution Width 15.8 % (11.5-14.5); Red Blood Cell (RBC) Count 3.97 mill/uL (4.20-5.40)
[2020-09-08 16:07] LABS: ALT (SGPT) 16 U/L (8-55); AST (SGOT) 17 U/L (5-34); Albumin 3.4 g/dL (3.4-4.8); Alkaline Phosphatase 135 U/L (40-110); Anion Gap 14 mmol/L (10-20); BUN (Urea Nitrogen) 21 mg/dL (9.8-20.1); Bilirubin, Total 0.3 mg/dL (0.2-1.2); Calc. Creatinine Clearance 0 mL/min (70-130); Calcium 8.1 mg/dL (7.8-10.44); Carbon Dioxide 22 mmol/L (23-31); Chloride 108 mmol/L (98-107); Globulin 2.9 g/dL (2.4-3.5); Glucose 94 mg/dL (83-110); Potassium 5.2 mmol/L (3.5-5.1); Protein, Total 6.3 g/dL (5.8-8.1); Sodium 139 mmol/L (136-145)
[2020-09-08 17:01] LABS: Bilirubin Negative (Negative); Blood, Urine Negative (Negative); Glucose, Urine (Dipstick) Negative (Negative); Ketone, Urine Negative (Negative); Leukocyte Moderate (Negative); Nitrite Negative (Negative); Protein, Urine (Dipstick) Negative (Neg-Trace); Specific Gravity, Urine 1.015 (1.005-1.030); Urobilinogen 0.2 mg/dL (Less than 2)
[2020-09-08 17:02] LABS: Clarity Hazy (Clear)
[2020-09-08 17:10] LABS: Bacteria/HPF Rare-Few HPF (None Seen); RBC/HPF 0-3 HPF (0-3)
[2020-09-08 17:11] LABS: Yeast-Budding 1+ HPF (None Seen)
[2020-09-08] MEDS ORDERED: cefTRIAXone\\ROCEPHIN 1 GM VIAL ONE (17:11)
[2020-09-08] MEDS ORDERED: Fentanyl 100 MCG/2 ML VIAL ONE (17:34)
== END 2020-09-08 18:50 | disposition home or self-care (01) ==
LOC: MADERS 15:03
DX: N12 Tubulo-interstitial nephritis, not specified as acute or chronic (principal); R63.0 Anorexia; R11.0 Nausea; F17.210 Nicotine dependence, cigarettes, uncomplicated; I25.10 Atherosclerotic heart disease of native coronary artery without angina pectoris; E27.40 Unspecified adrenocortical insufficiency; E78.5 Hyperlipidemia, unspecified; I10 Essential (primary) hypertension; Z85.841 Personal history of malignant neoplasm of brain; Z85.528 Personal history of other malignant neoplasm of kidney; Z85.42 Personal history of malignant neoplasm of other parts of uterus
CPT/HCPCS: 36415; 80053; 81003; 81015; 85025; 87086; 96374; 96375; J0696; J3010; J7050

== ENCOUNTER 2020-10-11 15:50 | Emergency (ER) | payer MEDICARE ==
[2020-10-11] MEDS ORDERED: Fentanyl 100 MCG/2 ML VIAL ONE (16:19)
[2020-10-11 17:08] LABS: #Basophils 0.1 thou/uL (0.0-0.2); #Eosinphils 0.1 thou/uL (0.0-0.7); #Lymphocytes 1.4 thou/uL (1.20-3.40); #Monocytes 0.6 thou/uL (0.11-0.59); #Neutrophils 10.3 thou/uL (1.40-6.50); %Basophils 0.6 % (0.0-1.0); %Eosinophils 0.9 % (0.0-10.0); %Lymphocytes 11.3 % (21.0-51.0); %Monocytes 4.4 % (0.0-10.0); %Neutrophils 82.7 % (42.0-75.0); Hemoglobin 10.4 g/dL (12.0-16.0); Mean Corpuscular Volume 86.8 fL (78.0-98.0); Mean Platelet Volume 6.5 fL (7.4-10.4); Platelet Count 417 thou/uL (130-400); White Blood Cell (WBC) Count 12.5 thou/uL (4.8-10.8)
[2020-10-11 17:17] LABS: Prothrombin Time 12.8 sec (12.0-14.7)
[2020-10-11] MEDS ORDERED: Midazolam HCl 5 mg/ml Vial ONE (17:17)
[2020-10-11 17:18] LABS: PTT 32.9 sec (22.9-36.1)
[2020-10-11 17:25] LABS: ALT (SGPT) 17 U/L (8-55); AST (SGOT) 18 U/L (5-34); Albumin 3.8 g/dL (3.4-4.8); Alkaline Phosphatase 126 U/L (40-110); Anion Gap 16 mmol/L (10-20); BUN (Urea Nitrogen) 22 mg/dL (9.8-20.1); Bilirubin, Total 0.3 mg/dL (0.2-1.2); Calc. Creatinine Clearance 0 mL/min (70-130); Calcium 8.8 mg/dL (7.8-10.44); Carbon Dioxide 23 mmol/L (23-31); Chloride 106 mmol/L (98-107); Globulin 3.2 g/dL (2.4-3.5); Glucose 82 mg/dL (83-110); Potassium 4.8 mmol/L (3.5-5.1); Sodium 140 mmol/L (136-145)
[2020-10-11] MEDS ORDERED: HYDROmorphone 0.5 MG/0.5 ML SYRINGE ONE (18:34)
[2020-10-11] MEDS ORDERED: Bacitracin 1 PK ONE (20:23)
== END 2020-10-11 20:34 | disposition short-term general hospital (02) ==
LOC: MADERS 15:50
DX: S32.591A Other specified fracture of right pubis, initial encounter for closed fracture (principal); S41.112A Laceration without foreign body of left upper arm, initial encounter; I25.10 Atherosclerotic heart disease of native coronary artery without angina pectoris; E27.40 Unspecified adrenocortical insufficiency; I10 Essential (primary) hypertension; F17.210 Nicotine dependence, cigarettes, uncomplicated; Z79.82 Long term (current) use of aspirin; Z85.528 Personal history of other malignant neoplasm of kidney; Z85.42 Personal history of malignant neoplasm of other parts of uterus; Z79.899 Other long term (current) drug therapy; Z85.841 Personal history of malignant neoplasm of brain; W18.30XA Fall on same level, unspecified, initial encounter
CPT/HCPCS: 70450; 72125; 72192; 80053; 85025; 85610; 85730; 96374; 96375; J1170; J2250; J3010

== ENCOUNTER 2020-11-30 10:00 | Emergency (ER) | payer MEDICARE ==
[~2020-11-30 10:00] MED LIST changes: +Lactated Ringer's 1,000 ML BAG ONE; -Sodium Chloride 0.9% 1,000 ML BAG ONE
[2020-11-30] MEDS ORDERED: Morphine 4 MG/ML VIAL ONE ×2 (10:50→12:46)
[2020-11-30] MEDS ORDERED: Ondansetron PF 4 MG/2 ML Vial ONE (10:50)
[2020-11-30 11:08] LABS: #Basophils 0.2 thou/uL (0.0-0.2); #Eosinphils 0.2 thou/uL (0.0-0.7); #Lymphocytes 3.6 thou/uL (1.20-3.40); #Monocytes 1.4 thou/uL (0.11-0.59); #Neutrophils 9.6 thou/uL (1.40-6.50); %Basophils 1.2 % (0.0-1.0); %Eosinophils 1.6 % (0.0-10.0); %Lymphocytes 24.1 % (21.0-51.0); %Monocytes 9.3 % (0.0-10.0); %Neutrophils 63.8 % (42.0-75.0); Anisocytosis SLIGHT = 6-15 cells (100X) (0-5/hpf); Hemoglobin 11.2 g/dL (12.0-16.0); MDiff Complete? YES; Mean Corpuscular HGB CONC 30.2 g/dL (32.0-36.0); Mean Corpuscular Hemoglobin 25.4 pg (27.0-31.0); Mean Corpuscular Volume 84.3 fL (78.0-98.0); Mean Platelet Volume 5.9 fL (7.4-10.4); Platelet Count 570 thou/uL (130-400); Poikilocytosis SLIGHT = 6-15 cells (100X) (0-5/hpf); RBC Distribution Width 18.5 % (11.5-14.5); Red Blood Cell (RBC) Count 4.41 mill/uL (4.20-5.40); Target Cells SLIGHT = 2-5 cells (100X) (0-1/hpf); Tear Drops SLIGHT = 2-5 cells (100X) (0-1/hpf); White Blood Cell (WBC) Count 15.1 thou/uL (4.8-10.8)
[2020-11-30 11:12] LABS: ALT (SGPT) 13 U/L (8-55); AST (SGOT) 19 U/L (5-34); Albumin 3.6 g/dL (3.4-4.8); Alkaline Phosphatase 153 U/L (40-110); Anion Gap 17 mmol/L (10-20); BUN (Urea Nitrogen) 27 mg/dL (9.8-20.1); Bilirubin, Total 0.3 mg/dL (0.2-1.2); Calc. Creatinine Clearance 0 mL/min (70-130); Calcium 8.7 mg/dL (7.8-10.44); Carbon Dioxide 21 mmol/L (23-31); Chloride 104 mmol/L (98-107); Glucose 89 mg/dL (83-110); Lipase 13 U/L (8-78); Magnesium 2.3 mg/dL (1.6-2.6); Potassium 5.1 mmol/L (3.5-5.1); Protein, Total 6.6 g/dL (5.8-8.1); Sodium 137 mmol/L (136-145)
[2020-11-30 11:23] LABS: CK (CPK) 22 U/L (29-168)
[2020-11-30 12:21] LABS: SARS-CoV-2 NAA Rapid Test Not Detected (NotDetected)
[2020-11-30 12:36] LABS: Bilirubin Negative (Negative); Blood, Urine Small (Negative); Glucose, Urine (Dipstick) Negative (Negative); Ketone, Urine Negative (Negative); Leukocyte Large (Negative); Nitrite Negative (Negative); Protein, Urine (Dipstick) 30 mg/dL (Neg-Trace); Specific Gravity, Urine 1.015 (1.005-1.030); Urobilinogen 0.2 mg/dL (Less than 2); pH, Urine 7.5 (5.0-9.0)
[2020-11-30 12:43] LABS: Clarity Hazy (Clear)
[2020-11-30 12:44] LABS: Bacteria/HPF Rare-Few HPF (None Seen); Yeast-Budding 1+ HPF (None Seen)
[2020-11-30] MEDS ORDERED: Metoclopramide HCl 10 MG TAB ONE (13:12)
[2020-11-30] MEDS ORDERED: Iopamidol 370 76% 100 ML VIAL ONE (13:35)
== END 2020-11-30 14:25 | disposition home or self-care (01) ==
LOC: MADERS 10:00
DX: K31.84 Gastroparesis (principal); I25.10 Atherosclerotic heart disease of native coronary artery without angina pectoris; E78.5 Hyperlipidemia, unspecified; I10 Essential (primary) hypertension; F17.210 Nicotine dependence, cigarettes, uncomplicated; Z20.822 Contact with and (suspected) exposure to COVID-19
CPT/HCPCS: 71045; 73610; 74177; 80053; 82550; 83605; 83690; 83735; 84484; 85025; 93005; 96374; 96375; 96376; 99284; U0002; 36415; 81003; 81015; J2270; J2405; J7120; Q9967

== ENCOUNTER 2020-12-15 17:26 | Emergency (ER) | payer MEDICARE ==
[~2020-12-15 17:26] MED LIST changes: -Lactated Ringer's 1,000 ML BAG ONE; +Sodium Chloride 0.9% 1,000 ML BAG ONE
[2020-12-15 18:49] LABS: #Lymphocytes 0.9 thou/uL (1.20-3.40); #Monocytes 0.4 thou/uL (0.11-0.59); #Neutrophils 10.6 thou/uL (1.40-6.50); %Basophils 0.2 % (0.0-1.0); %Eosinophils 0.2 % (0.0-10.0); %Lymphocytes 7.3 % (21.0-51.0); %Monocytes 3.4 % (0.0-10.0); %Neutrophils 88.9 % (42.0-75.0); Hemoglobin 10.3 g/dL (12.0-16.0); Mean Corpuscular Hemoglobin 24.3 pg (27.0-31.0); Mean Corpuscular Volume 83.7 fL (78.0-98.0); Mean Platelet Volume 5.7 fL (7.4-10.4); Platelet Count 376 thou/uL (130-400); Red Blood Cell (RBC) Count 4.24 mill/uL (4.20-5.40)
[2020-12-15 19:04] LABS: CRP (Inflammatory) 2.44 mg/dL (= or < 0.5)
[2020-12-15 19:07] LABS: ALT (SGPT) 12 U/L (8-55); AST (SGOT) 14 U/L (5-34); Albumin 3.6 g/dL (3.4-4.8); Alkaline Phosphatase 135 U/L (40-110); Anion Gap 16 mmol/L (10-20); BUN (Urea Nitrogen) 21 mg/dL (9.8-20.1); Bilirubin, Total 0.3 mg/dL (0.2-1.2); Calc. Creatinine Clearance 0 mL/min (70-130); Calcium 8.6 mg/dL (7.8-10.44); Carbon Dioxide 22 mmol/L (23-31); Chloride 109 mmol/L (98-107); Globulin 2.1 g/dL (2.4-3.5); Glucose 102 mg/dL (83-110); Lipase 14 U/L (8-78); Potassium 5.5 mmol/L (3.5-5.1); Protein, Total 5.7 g/dL (5.8-8.1); Sodium 141 mmol/L (136-145)
[2020-12-15 19:10] LABS: Bilirubin Negative (Negative); Blood, Urine Trace (Negative); Glucose, Urine (Dipstick) Negative (Negative); Ketone, Urine Negative (Negative); Leukocyte Moderate (Negative); Nitrite Negative (Negative); Protein, Urine (Dipstick) Negative (Neg-Trace); Specific Gravity, Urine 1.015 (1.005-1.030); Urobilinogen 0.2 mg/dL (Less than 2)
[2020-12-15 19:11] LABS: Bacteria/HPF 2+ HPF (None Seen); Clarity Cloudy (Clear); RBC/HPF 0-3 HPF (0-3)
[2020-12-15] MEDS ORDERED: Sodium Chloride 0.9% 1,000 ML ONE (20:14)
[2020-12-15] MEDS ORDERED: Morphine 4 MG/ML VIAL ONE ×2 (20:14→21:58)
[2020-12-15] MEDS ORDERED: Ciprofloxacin Lactate/D5W 400 mg/200 ml Premix ONE (20:14)
== END 2020-12-16 01:14 | disposition home or self-care (01) ==
LOC: MADERS 17:26
DX: N39.0 Urinary tract infection, site not specified (principal); R19.7 Diarrhea, unspecified; I25.10 Atherosclerotic heart disease of native coronary artery without angina pectoris; I10 Essential (primary) hypertension; E78.5 Hyperlipidemia, unspecified; F17.210 Nicotine dependence, cigarettes, uncomplicated
CPT/HCPCS: 36415; 74022; 80053; 81003; 81015; 82150; 82550; 83690; 84484; 85025; 86140; 87086; 93005; 96365; 96375; 96376; J0744; J2270; J7050

== ENCOUNTER 2020-12-24 00:17 | Emergency (ER) | payer MEDICARE ==
[2020-12-24] MEDS ORDERED: Sucralfate 1 GM TAB ONE (00:53)
[2020-12-24] MEDS ORDERED: Mag-Al Plus 1200 MG/1200 MG/120 MG/30 ML UDCUP ONE (00:54)
[2020-12-24] MEDS ORDERED: Lidocaine Viscous Sol 2% 15 ml UD Cup ONE (00:54)
== END 2020-12-24 01:23 | disposition home or self-care (01) ==
LOC: MADERS 00:17
DX: K21.00 Gastro-esophageal reflux disease with esophagitis, without bleeding (principal); I25.10 Atherosclerotic heart disease of native coronary artery without angina pectoris; E78.5 Hyperlipidemia, unspecified; I10 Essential (primary) hypertension; F17.210 Nicotine dependence, cigarettes, uncomplicated; Z79.82 Long term (current) use of aspirin; Z79.02 Long term (current) use of antithrombotics/antiplatelets; Z79.899 Other long term (current) drug therapy
CPT/HCPCS: 93005; 94760

== ENCOUNTER 2021-02-17 17:52 | Emergency (ER) | payer MEDICARE ==
[~2021-02-17 17:52] MED LIST changes: +Iopamidol 370 76% 100 ML VIAL ONE; -Sodium Chloride 0.9% 1,000 ML BAG ONE
[2021-02-17 19:37] LABS: Bilirubin Negative (Negative); Blood, Urine Trace (Negative); Glucose, Urine (Dipstick) Negative (Negative); Ketone, Urine Negative (Negative); Leukocyte Moderate (Negative); Nitrite Negative (Negative); Protein, Urine (Dipstick) Negative (Neg-Trace); Specific Gravity, Urine 1.015 (1.005-1.030); Urobilinogen 0.2 mg/dL (Less than 2)
[2021-02-17 19:50] LABS: Clarity Slightly Cloudy (Clear)
[2021-02-17 19:51] LABS: Bacteria/HPF 4+ HPF (None Seen); WBC/HPF Greater Than 50 HPF (0-3)
[2021-02-17] MEDS ORDERED: Morphine 4 MG/ML VIAL ONE (20:00)
[2021-02-17] MEDS ORDERED: Ondansetron PF 4 MG/2 ML Vial ONE (20:00)
[2021-02-17 20:06] LABS: ALT (SGPT) 16 U/L (8-55); AST (SGOT) 15 U/L (5-34); Albumin 3.6 g/dL (3.4-4.8); Alkaline Phosphatase 118 U/L (40-110); Anion Gap 14 mmol/L (10-20); BUN (Urea Nitrogen) 14 mg/dL (9.8-20.1); Bilirubin, Total 0.2 mg/dL (0.2-1.2); Calc. Creatinine Clearance 0 mL/min (70-130); Calcium 8.4 mg/dL (7.8-10.44); Carbon Dioxide 23 mmol/L (23-31); Chloride 106 mmol/L (98-107); Globulin 2.8 g/dL (2.4-3.5); Glucose 92 mg/dL (83-110); Potassium 4.3 mmol/L (3.5-5.1); Protein, Total 6.4 g/dL (5.8-8.1); Sodium 139 mmol/L (136-145)
[2021-02-17 20:11] LABS: #Basophils 0.1 thou/uL (0.0-0.2); #Eosinphils 0.1 thou/uL (0.0-0.7); #Lymphocytes 1.7 thou/uL (1.20-3.40); #Monocytes 0.9 thou/uL (0.11-0.59); #Neutrophils 9.7 thou/uL (1.40-6.50); %Basophils 0.7 % (0.0-1.0); %Eosinophils 0.6 % (0.0-10.0); %Lymphocytes 13.3 % (21.0-51.0); %Monocytes 7.2 % (0.0-10.0); %Neutrophils 78.2 % (42.0-75.0); Hemoglobin 9.5 g/dL (12.0-16.0); Hypochromia SLIGHT = 6-15 cells (100X) (0-5/hpf); MDiff Complete? YES; Mean Corpuscular Hemoglobin 23.3 pg (27.0-31.0); Mean Corpuscular Volume 77.6 fL (78.0-98.0); Mean Platelet Volume 5.5 fL (7.4-10.4); Microcytosis SLIGHT = 6-15 cells (100X) (0-5/hpf); Platelet Count 396 thou/uL (130-400); RBC Distribution Width 17.7 % (11.5-14.5); Red Blood Cell (RBC) Count 4.07 mill/uL (4.20-5.40); White Blood Cell (WBC) Count 12.4 thou/uL (4.8-10.8)
[2021-02-17] MEDS ORDERED: Ketorolac Tromethamine 30 MG/ML VIAL ONE (21:19)
[2021-02-17] MEDS ORDERED: cefTRIAXone\\ROCEPHIN 1 GM VIAL ONE (21:19)
[2021-02-17] MEDS ORDERED: Sterile Water 10 ML ONE (21:20)
== END 2021-02-17 22:15 | disposition home or self-care (01) ==
LOC: MADERS 17:52
DX: N39.0 Urinary tract infection, site not specified (principal); F17.210 Nicotine dependence, cigarettes, uncomplicated; I10 Essential (primary) hypertension; E78.5 Hyperlipidemia, unspecified; I25.10 Atherosclerotic heart disease of native coronary artery without angina pectoris
CPT/HCPCS: 74177; 80053; 81003; 81015; 83605; 85025; 87086; 96374; 96375; J0696; J1885; J2270; J2405; Q9967

== ENCOUNTER 2021-03-01 12:26 | Emergency (ER) | payer MEDICARE | END 2021-03-01 13:18 | disposition left against medical advice (07) | LOC: MADERS 12:26 | DX: Z53.21 Procedure and treatment not carried out due to patient leaving prior to being seen by health care provider (principal) ==

== ENCOUNTER 2021-03-02 06:54 | Emergency (ER) | payer MEDICARE ==
[2021-03-02] MEDS ORDERED: Azithromycin 250 MG TAB ONE (07:39)
[2021-03-02] MEDS ORDERED: Benzonatate 100 MG CAP ONE (07:39)
[2021-03-02 22:23] LABS: SARS-CoV-2 PCR by NAA Not Detected (NotDetected)
== END 2021-03-02 07:57 | disposition home or self-care (01) ==
LOC: MADERS 06:54
DX: J18.9 Pneumonia, unspecified organism (principal); Z20.822 Contact with and (suspected) exposure to COVID-19; J44.9 Chronic obstructive pulmonary disease, unspecified; F17.210 Nicotine dependence, cigarettes, uncomplicated
CPT/HCPCS: 71045; J7620; U0003; U0005

== ENCOUNTER 2021-04-25 10:26 | Emergency (ER) | payer MEDICARE ==
[2021-04-25 11:50] LABS: ALT (SGPT) 33 U/L (8-55); AST (SGOT) 32 U/L (5-34); Albumin 3.4 g/dL (3.4-4.8); Alkaline Phosphatase 125 U/L (40-110); Anion Gap 12 mmol/L (10-20); BUN (Urea Nitrogen) 18 mg/dL (9.8-20.1); Bilirubin, Total 0.3 mg/dL (0.2-1.2); Calc. Creatinine Clearance 0 mL/min (70-130); Calcium 8.6 mg/dL (7.8-10.44); Carbon Dioxide 25 mmol/L (23-31); Chloride 108 mmol/L (98-107); Globulin 2.6 g/dL (2.4-3.5); Glucose 84 mg/dL (83-110); Lipase 12 U/L (8-78); Potassium 4.6 mmol/L (3.5-5.1); Sodium 140 mmol/L (136-145)
[2021-04-25] MEDS ORDERED: Sodium Chloride 0.9% 500 ML ONE (12:04)
[2021-04-25 12:11] LABS: #Basophils 0.2 thou/uL (0.0-0.2); #Eosinphils 0.1 thou/uL (0.0-0.7); #Monocytes 0.6 thou/uL (0.11-0.59); #Neutrophils 11.8 thou/uL (1.40-6.50); %Basophils 1.5 % (0.0-1.0); %Eosinophils 0.5 % (0.0-10.0); %Lymphocytes 7.4 % (21.0-51.0); %Monocytes 4.6 % (0.0-10.0); Anisocytosis SLIGHT = 6-15 cells (100X) (0-5/hpf); Hemoglobin 12.4 g/dL (12.0-16.0); Hypochromia SLIGHT = 6-15 cells (100X) (0-5/hpf); MDiff Complete? YES; Mean Corpuscular HGB CONC 31.7 g/dL (32.0-36.0); Mean Corpuscular Hemoglobin 27.1 pg (27.0-31.0); Mean Corpuscular Volume 85.2 fL (78.0-98.0); Mean Platelet Volume 5.8 fL (7.4-10.4); Platelet Count 248 thou/uL (130-400); Platelet Morphology Comment Appears Adequate; Red Blood Cell (RBC) Count 4.57 mill/uL (4.20-5.40); White Blood Cell (WBC) Count 13.7 thou/uL (4.8-10.8)
[2021-04-25] MEDS ORDERED: Mag-Al Plus 1200 MG/1200 MG/120 MG/30 ML UDCUP ONE (13:24)
[2021-04-25] MEDS ORDERED: Lidocaine Viscous Sol 2% 15 ml UD Cup ONE (13:24)
[2021-04-25 14:41] LABS: Troponin I 0.014 ng/mL (< 0.028)
[2021-04-25] MEDS ORDERED: Ondansetron PF 4 MG/2 ML Vial ONE (14:44)
== END 2021-04-25 14:52 | disposition home or self-care (01) ==
LOC: MADERS 10:26
DX: R10.10 Upper abdominal pain, unspecified (principal); F17.210 Nicotine dependence, cigarettes, uncomplicated; I25.2 Old myocardial infarction; J44.9 Chronic obstructive pulmonary disease, unspecified; Z79.899 Other long term (current) drug therapy
CPT/HCPCS: 36415; 71045; 74177; 80053; 83690; 83735; 83880; 84484; 85025; 93005; 96374; J2405; J7030; Q9967

== ENCOUNTER 2021-05-05 12:42 | Emergency (ER) | payer MEDICARE ==
[2021-05-05] MEDS ORDERED: HYDROcodone/Acetaminophen 10/325 mg Tablet ONE (13:46)
[2021-05-05] MEDS ORDERED: Milk Of Magnesia 30 ML UDCUP ONE (14:15)
[2021-05-05] MEDS ORDERED: Dicyclomine 20 MG/2 ML VIAL ONE (14:15)
[2021-05-05 14:33] LABS: CRP (Inflammatory) 15.09 mg/dL (= or < 0.5)
[2021-05-05 14:35] LABS: ALT (SGPT) 14 U/L (8-55); AST (SGOT) 17 U/L (5-34); Albumin 3.5 g/dL (3.4-4.8); Alkaline Phosphatase 121 U/L (40-110); Anion Gap 18 mmol/L (10-20); BUN (Urea Nitrogen) 21 mg/dL (9.8-20.1); Bilirubin, Total 0.6 mg/dL (0.2-1.2); Calc. Creatinine Clearance 0 mL/min (70-130); Calcium 8.9 mg/dL (7.8-10.44); Carbon Dioxide 20 mmol/L (23-31); Chloride 105 mmol/L (98-107); Globulin 3.2 g/dL (2.4-3.5); Glucose 96 mg/dL (83-110); Potassium 3.9 mmol/L (3.5-5.1); Protein, Total 6.7 g/dL (5.8-8.1); Sodium 139 mmol/L (136-145)
[2021-05-05 14:54] LABS: Hemoglobin 14.6 g/dL (12.0-16.0); Mean Corpuscular Hemoglobin 27.2 pg (27.0-31.0); Mean Corpuscular Volume 87.8 fL (78.0-98.0); Red Blood Cell (RBC) Count 5.37 mill/uL (4.20-5.40); White Blood Cell (WBC) Count 13.8 thou/uL (4.8-10.8)
[2021-05-05 14:55] LABS: #Lymphocytes 1.1 thou/uL (1.20-3.40); #Monocytes 0.6 thou/uL (0.11-0.59); %Basophils 0.4 % (0.0-1.0); %Eosinophils 0.3 % (0.0-10.0); %Lymphocytes 8.2 % (21.0-51.0); Mean Corpuscular HGB CONC 30.9 g/dL (32.0-36.0); Mean Platelet Volume 5.6 fL (7.4-10.4); Platelet Count 258 thou/uL (130-400); RBC Distribution Width 23.8 % (11.5-14.5)
[2021-05-05 14:56] LABS: #Basophils 0.1 thou/uL (0.0-0.2)
[2021-05-05 15:03] LABS: Bilirubin Negative (Negative); Blood, Urine Small (Negative); Glucose, Urine (Dipstick) Negative (Negative); Ketone, Urine 40 mg/dL (Negative); Leukocyte Small (Negative); Nitrite Positive (Negative); Protein, Urine (Dipstick) 30 mg/dL (Neg-Trace); Specific Gravity, Urine 1.025 (1.005-1.030); Urobilinogen 0.2 mg/dL (Less than 2)
[2021-05-05 15:04] LABS: Clarity Cloudy (Clear)
[2021-05-05 15:10] LABS: Bacteria/HPF 2+ HPF (None Seen); Mucous/LPF 1+ LPF (<2+); RBC/HPF 0-3 HPF (0-3)
[2021-05-05] MEDS ORDERED: Dicyclomine 10 MG CAP ONE (15:39)
== END 2021-05-05 15:54 | disposition home or self-care (01) ==
LOC: MADERS 12:42
DX: K59.00 Constipation, unspecified (principal); N39.0 Urinary tract infection, site not specified; I25.2 Old myocardial infarction; J44.9 Chronic obstructive pulmonary disease, unspecified; F17.210 Nicotine dependence, cigarettes, uncomplicated; Z79.899 Other long term (current) drug therapy
CPT/HCPCS: 74022; 80053; 81003; 81015; 82150; 82550; 85025; 86140; 87086; 96372; J0500

== ENCOUNTER 2021-07-13 14:16 | Emergency (ER) | payer MEDICARE ==
[2021-07-13] MEDS ORDERED: Ketorolac Tromethamine 30 MG/ML VIAL ONE (15:19)
[2021-07-13 15:36] LABS: #Basophils 0.1 thou/uL (0.0-0.2); #Lymphocytes 1.5 thou/uL (1.20-3.40); #Monocytes 0.5 thou/uL (0.11-0.59); #Neutrophils 10.2 thou/uL (1.40-6.50); %Basophils 0.7 % (0.0-1.0); %Eosinophils 0.2 % (0.0-10.0); %Lymphocytes 12.5 % (21.0-51.0); %Monocytes 3.7 % (0.0-10.0); %Neutrophils 82.9 % (42.0-75.0); Hemoglobin 16.5 g/dL (12.0-16.0); Mean Corpuscular HGB CONC 30.6 g/dL (32.0-36.0); Mean Corpuscular Hemoglobin 28.8 pg (27.0-31.0); Mean Corpuscular Volume 94.4 fL (78.0-98.0); Mean Platelet Volume 8.2 fL (7.4-10.4); Platelet Count 253 thou/uL (130-400); RBC Distribution Width 16.7 % (11.5-14.5); White Blood Cell (WBC) Count 12.3 thou/uL (4.8-10.8)
[2021-07-13 15:47] LABS: Bilirubin Negative (Negative); Blood, Urine Small (Negative); Clarity Slightly Cloudy (Clear); Glucose, Urine (Dipstick) Negative (Negative); Ketone, Urine Negative (Negative); Leukocyte Large (Negative); Nitrite Positive (Negative); Protein, Urine (Dipstick) 30 mg/dL (Neg-Trace); Specific Gravity, Urine 1.015 (1.005-1.030); Urobilinogen 0.2 mg/dL (Less than 2)
[2021-07-13 15:52] LABS: ALT (SGPT) 23 U/L (8-55); AST (SGOT) 21 U/L (5-34); Albumin 3.4 g/dL (3.4-4.8); Alkaline Phosphatase 193 U/L (40-110); Anion Gap 17 mmol/L (10-20); BUN (Urea Nitrogen) 16 mg/dL (9.8-20.1); Bilirubin, Total 0.4 mg/dL (0.2-1.2); Calc. Creatinine Clearance 0 mL/min (70-130); Calcium 8.9 mg/dL (7.8-10.44); Carbon Dioxide 26 mmol/L (23-31); Chloride 106 mmol/L (98-107); Globulin 2.9 g/dL (2.4-3.5); Glucose 96 mg/dL (83-110); Potassium 3.7 mmol/L (3.5-5.1); Protein, Total 6.3 g/dL (5.8-8.1); Sodium 145 mmol/L (136-145)
[2021-07-13 16:01] LABS: Bacteria/HPF 3+ HPF (None Seen); RBC/HPF 0-3 HPF (0-3); Squamous Epithelial 21-50 HPF (0-3); WBC/HPF 21-50 HPF (0-3)
[2021-07-13] MEDS ORDERED: HYDROcodone/Acetaminophen 10/325 mg Tablet ONE (16:01)
[2021-07-13 16:02] LABS: Mucous/LPF Rare LPF (<2+)
[2021-07-13] MEDS ORDERED: Gabapentin 100 MG CAP ONE (18:07)
== END 2021-07-13 18:38 | disposition home or self-care (01) ==
LOC: MADERS 14:16
DX: S22.068A Other fracture of T7-T8 thoracic vertebra, initial encounter for closed fracture (principal); S22.078A Other fracture of T9-T10 vertebra, initial encounter for closed fracture; S22.088A Other fracture of T11-T12 vertebra, initial encounter for closed fracture; I25.2 Old myocardial infarction; Z95.5 Presence of coronary angioplasty implant and graft; J44.9 Chronic obstructive pulmonary disease, unspecified; F17.210 Nicotine dependence, cigarettes, uncomplicated; Z79.02 Long term (current) use of antithrombotics/antiplatelets; Z79.899 Other long term (current) drug therapy; X58.XXXA Exposure to other specified factors, initial encounter
CPT/HCPCS: 71260; 74177; 80053; 81003; 81015; 85025; 96374; J1885; Q9967

== ENCOUNTER 2021-07-14 21:58 | Emergency (ER) | payer MEDICARE ==
[2021-07-14 22:47] LABS: Hemoglobin 15.2 g/dL (12.0-16.0); Mean Corpuscular HGB CONC 31.5 g/dL (32.0-36.0); Mean Corpuscular Hemoglobin 29.1 pg (27.0-31.0); Mean Corpuscular Volume 92.4 fL (78.0-98.0); Mean Platelet Volume 8.2 fL (7.4-10.4); Platelet Count 254 thou/uL (130-400); RBC Distribution Width 16.6 % (11.5-14.5); Red Blood Cell (RBC) Count 5.21 mill/uL (4.20-5.40); White Blood Cell (WBC) Count 14.5 thou/uL (4.8-10.8)
[2021-07-14 22:52] LABS: ALT (SGPT) 19 U/L (8-55); AST (SGOT) 18 U/L (5-34); Albumin 3.1 g/dL (3.4-4.8); Alkaline Phosphatase 175 U/L (40-110); Anion Gap 16 mmol/L (10-20); BUN (Urea Nitrogen) 17 mg/dL (9.8-20.1); Bilirubin, Total 0.2 mg/dL (0.2-1.2); Calc. Creatinine Clearance 0 mL/min (70-130); Calcium 8.8 mg/dL (7.8-10.44); Carbon Dioxide 26 mmol/L (23-31); Chloride 107 mmol/L (98-107); Globulin 2.9 g/dL (2.4-3.5); Glucose 138 mg/dL (83-110); Sodium 145 mmol/L (136-145)
[2021-07-14 22:54] LABS: Band 1 % (5-11); Eosinophils 1 % (0-10); Lymphocytes 14 % (21-51); MDiff Complete? YES; Monocytes 3 % (0-10); Neutrophil 81 % (42-75)
[2021-07-14] MEDS ORDERED: Sodium Chloride 0.9% 500 ML ONE (22:57)
[2021-07-14] MEDS ORDERED: Orphenadrine Citrate 60 MG/2 ML VIAL ONE (23:35)
[2021-07-15 00:24] LABS: Bilirubin Negative (Negative); Blood, Urine Moderate (Negative); Clarity Turbid (Clear); Glucose, Urine (Dipstick) Negative (Negative); Ketone, Urine Negative (Negative); Leukocyte Moderate (Negative); Nitrite Positive (Negative); Protein, Urine (Dipstick) 30 mg/dL (Neg-Trace); Urobilinogen 0.2 mg/dL (Less than 2)
[2021-07-15 00:25] LABS: Bacteria/HPF 3+ HPF (None Seen); Calcium Oxalate Crystals Rare HPF (None Seen); WBC/HPF Greater than 50 HPF (0-3)
[2021-07-15] MEDS ORDERED: cefTRIAXone\\ROCEPHIN 1 GM VIAL ONE (00:34)
[2021-07-15] MEDS ORDERED: Sodium Chloride 0.9% 100 ML ONE (00:36)
[2021-07-15] MEDS ORDERED: Ketorolac Tromethamine 30 MG/ML VIAL ONE (01:15)
== END 2021-07-15 02:53 | disposition short-term general hospital (02) ==
LOC: MADERS 21:58
DX: N12 Tubulo-interstitial nephritis, not specified as acute or chronic (principal); M48.54XA Collapsed vertebra, not elsewhere classified, thoracic region, initial encounter for fracture; I25.2 Old myocardial infarction; F17.210 Nicotine dependence, cigarettes, uncomplicated; J44.9 Chronic obstructive pulmonary disease, unspecified; Z79.899 Other long term (current) drug therapy
CPT/HCPCS: 80053; 81003; 81015; 85025; 87040; 87086; 96372; 96374; 96375; J0696; J1885; J2360; J3490; J7030

== ENCOUNTER 2021-08-03 17:34 | Emergency (ER) | payer MEDICARE ==
[~2021-08-03 17:34] MED LIST changes: -Iopamidol 370 76% 100 ML VIAL ONE; +Iopamidol 370 76% 125 ML VIAL FS ONE
[2021-08-03] MEDS ORDERED: Morphine 4 MG/ML VIAL ONE ×2 (18:01→20:35)
[2021-08-03 18:23] LABS: Bilirubin Small (Negative); Blood, Urine Moderate (Negative); Glucose, Urine (Dipstick) Negative (Negative); Ketone, Urine 15 mg/dL (Negative); Leukocyte Large (Negative); Nitrite Negative (Negative); Protein, Urine (Dipstick) 30 mg/dL (Neg-Trace); Urobilinogen 0.2 mg/dL (Less than 2)
[2021-08-03 18:27] LABS: Clarity Slightly Cloudy (Clear)
[2021-08-03 18:35] LABS: Bacteria/HPF 3+ HPF (None Seen); Squamous Epithelial 0-3 HPF (0-3); WBC/HPF Greater Than 50 HPF (0-3)
[2021-08-03 18:39] LABS: ALT (SGPT) 13 U/L (8-55); AST (SGOT) 13 U/L (5-34); Albumin 3.4 g/dL (3.4-4.8); Alkaline Phosphatase 166 U/L (40-110); Anion Gap 18 mmol/L (10-20); BUN (Urea Nitrogen) 22 mg/dL (9.8-20.1); Bilirubin, Total 0.4 mg/dL (0.2-1.2); Calc. Creatinine Clearance 0 mL/min (70-130); Calcium 8.8 mg/dL (7.8-10.44); Carbon Dioxide 23 mmol/L (23-31); Chloride 104 mmol/L (98-107); Globulin 3.3 g/dL (2.4-3.5); Glucose 103 mg/dL (83-110); Lipase 5 U/L (8-78); Potassium 4.7 mmol/L (3.5-5.1); Protein, Total 6.7 g/dL (5.8-8.1); Sodium 140 mmol/L (136-145)
[2021-08-03] MEDS ORDERED: Ketorolac Tromethamine 30 MG/ML VIAL ONE (18:55)
[2021-08-03] MEDS ORDERED: cefTRIAXone\\ROCEPHIN 2 GM VIAL ONE (18:55)
[2021-08-03] MEDS ORDERED: Sodium Chloride 0.9% 100 ML ONE (18:55)
[2021-08-03 19:07] LABS: #Basophils 0.1 thou/uL (0.0-0.2); #Monocytes 0.5 thou/uL (0.11-0.59); #Neutrophils 8.7 thou/uL (1.40-6.50); %Eosinophils 0.3 % (0.0-10.0); %Monocytes 4.5 % (0.0-10.0); %Neutrophils 84.3 % (42.0-75.0); Hemoglobin 13.5 g/dL (12.0-16.0); Mean Corpuscular HGB CONC 31.4 g/dL (32.0-36.0); Mean Corpuscular Hemoglobin 28.9 pg (27.0-31.0); Mean Corpuscular Volume 91.9 fL (78.0-98.0); Mean Platelet Volume 7.2 fL (7.4-10.4); Platelet Count 301 thou/uL (130-400); Red Blood Cell (RBC) Count 4.66 mill/uL (4.20-5.40); White Blood Cell (WBC) Count 10.3 thou/uL (4.8-10.8)
== END 2021-08-03 21:40 | disposition home or self-care (01) ==
LOC: MADERS 17:34
DX: N39.0 Urinary tract infection, site not specified (principal); I77.811 Abdominal aortic ectasia; R91.8 Other nonspecific abnormal finding of lung field; I25.2 Old myocardial infarction; J44.9 Chronic obstructive pulmonary disease, unspecified; F17.210 Nicotine dependence, cigarettes, uncomplicated; Z95.5 Presence of coronary angioplasty implant and graft; Z85.841 Personal history of malignant neoplasm of brain; Z79.899 Other long term (current) drug therapy
CPT/HCPCS: 36415; 51701; 71045; 71275; 74174; 74176; 80053; 81003; 81015; 83690; 84484; 85025; 85379; 87086; 93005; 94760; 96365; 96375; 96376; J0696; J1885; J2270; J3490; Q9967

== ENCOUNTER 2021-08-24 14:38 | Emergency (ER) | payer MEDICARE ==
[2021-08-24] MEDS ORDERED: HYDROcodone/Acetaminophen 5/325 mg Tablet ONE (15:14)
[2021-08-24 15:30] LABS: Bilirubin Negative (Negative); Blood, Urine Moderate (Negative); Glucose, Urine (Dipstick) Negative (Negative); Ketone, Urine Negative (Negative); Leukocyte Moderate (Negative); Nitrite Negative (Negative); Protein, Urine (Dipstick) Trace mg/dL (Neg-Trace); Specific Gravity, Urine 1.015 (1.005-1.030); Urobilinogen 0.2 mg/dL (Less than 2)
[2021-08-24 15:31] LABS: Clarity Hazy (Clear)
[2021-08-24 15:38] LABS: Bacteria/HPF Rare-Few HPF (None Seen); WBC/HPF Greater Than 50 HPF (0-3); Yeast-Budding 1+ HPF (None Seen)
[2021-08-24 16:16] LABS: #Basophils 0.1 thou/uL (0.0-0.2); #Eosinphils 0.1 thou/uL (0.0-0.7); #Lymphocytes 1.9 thou/uL (1.20-3.40); #Monocytes 0.6 thou/uL (0.11-0.59); #Neutrophils 10.2 thou/uL (1.40-6.50); %Basophils 0.8 % (0.0-1.0); %Eosinophils 0.8 % (0.0-10.0); %Lymphocytes 14.4 % (21.0-51.0); %Monocytes 4.7 % (0.0-10.0); %Neutrophils 79.4 % (42.0-75.0); Hemoglobin 13.8 g/dL (12.0-16.0); Mean Corpuscular HGB CONC 32.4 g/dL (32.0-36.0); Mean Corpuscular Hemoglobin 30.6 pg (27.0-31.0); Mean Corpuscular Volume 94.2 fL (78.0-98.0); Mean Platelet Volume 7.4 fL (7.4-10.4); Platelet Count 292 thou/uL (130-400); RBC Distribution Width 15.5 % (11.5-14.5); Red Blood Cell (RBC) Count 4.53 mill/uL (4.20-5.40); White Blood Cell (WBC) Count 12.8 thou/uL (4.8-10.8)
[2021-08-24 16:27] LABS: ALT (SGPT) 11 U/L (8-55); AST (SGOT) 11 U/L (5-34); Albumin 3.2 g/dL (3.4-4.8); Alkaline Phosphatase 140 U/L (40-110); Anion Gap 18 mmol/L (10-20); BUN (Urea Nitrogen) 20 mg/dL (9.8-20.1); Bilirubin, Total 0.4 mg/dL (0.2-1.2); Calc. Creatinine Clearance 0 mL/min (70-130); Calcium 8.7 mg/dL (7.8-10.44); Carbon Dioxide 22 mmol/L (23-31); Chloride 109 mmol/L (98-107); Globulin 2.7 g/dL (2.4-3.5); Glucose 85 mg/dL (83-110); Potassium 4.5 mmol/L (3.5-5.1); Protein, Total 5.9 g/dL (5.8-8.1); Sodium 144 mmol/L (136-145)
[2021-08-24] MEDS ORDERED: Acetylcysteine 20% 200 MG/ML 30 ML VIAL ONE (18:43)
== END 2021-08-24 17:10 | disposition home or self-care (01) ==
LOC: MADERS 14:38
DX: N39.0 Urinary tract infection, site not specified (principal); I25.2 Old myocardial infarction; J44.9 Chronic obstructive pulmonary disease, unspecified; F17.210 Nicotine dependence, cigarettes, uncomplicated; Z79.899 Other long term (current) drug therapy
CPT/HCPCS: 36415; 51701; 80053; 81003; 81015; 83605; 85025; J0132

== ENCOUNTER 2021-09-15 19:56 | Emergency (ER) | payer OTHER, MEDICARE ==
[2021-09-15 21:56] LABS: Bilirubin Negative (Negative); Blood, Urine Trace (Negative); Clarity Clear (Clear); Glucose, Urine (Dipstick) Negative (Negative); Ketone, Urine Negative (Negative); Leukocyte Moderate (Negative); Nitrite Negative (Negative); Protein, Urine (Dipstick) Negative (Neg-Trace); Specific Gravity, Urine 1.015 (1.005-1.030); Urobilinogen 0.2 mg/dL (Less than 2); pH, Urine 6.5 (5.0-9.0)
[2021-09-15 22:08] LABS: Bacteria/HPF Rare-Few HPF (None Seen); RBC/HPF 0-3 HPF (0-3); Transitional Epithelial 0-3 HPF (None Seen); WBC/HPF 21-50 HPF (0-3)
[2021-09-15 22:10] LABS: Yeast-Budding 1+ HPF (None Seen); Yeast-Hyphae 1+ HPF (None Seen)
== END 2021-09-15 22:54 | disposition home or self-care (01) ==
LOC: MADERS 19:56
DX: N39.0 Urinary tract infection, site not specified (principal); I25.2 Old myocardial infarction; J44.9 Chronic obstructive pulmonary disease, unspecified; F17.210 Nicotine dependence, cigarettes, uncomplicated; Z95.5 Presence of coronary angioplasty implant and graft; Z96.0 Presence of urogenital implants
CPT/HCPCS: 51701; 81003; 81015; 87086

== ENCOUNTER 2021-10-17 14:38 | Emergency (ER) | payer MEDICARE ==
[2021-10-17] MEDS ORDERED: Morphine 4 MG/ML VIAL ONE (15:11)
== END 2021-10-17 16:03 | disposition home or self-care (01) ==
LOC: MADERS 14:38
DX: S22.42XA Multiple fractures of ribs, left side, initial encounter for closed fracture (principal); W18.30XA Fall on same level, unspecified, initial encounter; I25.2 Old myocardial infarction; J44.9 Chronic obstructive pulmonary disease, unspecified; F17.210 Nicotine dependence, cigarettes, uncomplicated; Z79.899 Other long term (current) drug therapy
CPT/HCPCS: 96372; J2270